=== PATIENT | female | born 1980 | race Hispanic/Latino ===

== ENCOUNTER 2017-04-04 10:50 | Emergency (ER) | payer BC ==
[2017-04-04 11:57] LABS: Basophils % (Auto) 0.6 % (0.0-1.8); Eosinophils % (Auto) 4.2 % (0.0-4.3); Hematocrit 44.4 % (30.3-42.9); Hemoglobin 15.4 gm/dl (10.1-14.3); Mean Corpuscular HGB Conc 35 % (30-34); Mean Corpuscular Hemoglobin 32 pg (28-32); Mean Corpuscular Volume 91 fl (79-97); Platelet Count 247 K/mm3 (140-440); Red Blood Count 4.87 M/mm3 (3.65-5.03); Red Cell Distribution Width 12.9 % (13.2-15.2); White Blood Count 11.7 K/mm3 (4.5-11.0)
--- NOTE | 2017-04-04 12:15 | Emergency Department Report ---
Entered by RANCHO GRIFFITH, acting as scribe for LIS HARDWICK NP. Stated Complaint: BLOOD IN URINE Time Seen by Provider: 04/04/17 11:29 - HPI History of Present Illness: Pt is a 41 y.o. female who presents to ED for evaluation of three day hx of bilateral flank pain with associated dysuria and nausea. She describes her 8/10 pain as cramping. Patient states that her current sx do not feel similar to those experienced in the past with UTIs, as her current sx are more severe. She denies fever. LMP March 18, 2017. - ROS Review of Systems: Positive for bilateral flank pain, nausea, and dysuria Negative for fever - Exam Vital Signs: Vital Signs 04/04/17 11:29 Temperature 98.1 F Pulse Rate 79 Respiratory 18 Rate Blood Pressure 125/78 O2 Sat by Pulse 98 Oximetry Physical Exam: abd is soft, no cva tenderness leena MSE screening note: Focused history and physical exam performed. Due to findings the following was ordered: Orders placed: labs. ED Medical Decision Making - Lab Data Result diagrams: 04/04/17 11:35 ED Disposition for MSE Condition: Stable This documentation as recorded by the scribe,RANCHO GRIFFITH,accurately reflects the service I personally performed and the decisions made by RONEN hayes TRACY M , MANAGER SPECIALTY.
[2017-04-04 12:17] LABS: Alanine Aminotransferase 34 units/L (7-56); Albumin 4.6 g/dL (3.9-5); Albumin/Globulin Ratio 1.2 %; Alkaline Phosphatase 69 units/L (35-129); Anion Gap 20 mmol/L; BUN/Creatinine Ratio 13.33; Blood Urea Nitrogen 8 mg/dL (7-17); Calcium 9.5 mg/dL (8.4-10.2); Carbon Dioxide 25 mmol/L (22-30); Chloride 98.1 mmol/L (98-107); Glucose 155 mg/dL (65-100); Potassium 4.8 mmol/L (3.6-5.0); Sodium 138 mmol/L (137-145); Total Protein 8.5 g/dL (6.3-8.2)
[2017-04-04 12:22] LABS: Bacteria,Urine 1+ /HPF (Negative); Bilirubin,Urine NEG (Negative); Blood,Urine MOD (Negative); Ketones,Urine NEG (Negative); Leukocyte Esterase,Urine MOD (Negative); Mucus,Urine FEW /HPF; Nitrite,Urine POS (Negative); Urobilinogen,Urine < 2.0 mg/dL (<2.0)
[2017-04-04] MEDS ORDERED: MORPHINE IV ONE ×2 (15:30→18:08)
[2017-04-04] MEDS ORDERED: ZOFRAN IV ONE (15:31)
[2017-04-04] MEDS ORDERED: NACL 0.9% 1000 ML 1,000 ML IV ONE ×2 (15:31→18:08)
[2017-04-04] MEDS ORDERED: ROCEPHIN/NS 1 GM/50 ML 1 GM/50 ML BAG IV ONE (15:32)
--- NOTE | 2017-04-04 15:32 | Emergency Department Report ---
ED Female HPI - General Chief complaint: Abdominal Pain Stated complaint: BLOOD IN URINE Time Seen by Provider: 04/04/17 11:29 Source: patient Mode of arrival: Ambulatory Limitations: No Limitations - History of Present Illness Initial comments: 36-year-old female past medical history recurrent UTIs, diabetes, hyperlipidemia , neuropathy presents with complaint of 4 days of dysuria, hematuria, right- sided flank pain. Patient denies fevers denies any nausea or vomiting does state that flank pain is getting progressively worse. Patient is awake alert and oriented 3 nontoxic-appearing. Accompanied by family members. Denies any chest pain shortness of breath palpitations. Denies inability to tolerate by mouth. Denies any diaphoresis. MD Complaint: dysuria Onset/Timin -: days(s) Location: suprapubic Radiation: R flank Severity: moderate Severity scale (0 -10): 6 Quality: sharp Consistency: intermittent Worsens with: urination Are you Now?: No Last Menstrual Period: 03/18/17 EDC: 12/23/17 Associated Symptoms: dysuria, hematuria - Related Data Sexually active: Yes Previous Rx's Medication Instructions Recorded Last Taken Type Naproxen [Naprosyn] 500 mg PO BID #30 tablet 07/26/16 Unknown Rx Acetaminophen/Codeine [Tylenol 1 tab PO Q6H PRN #10 tab 04/04/17 Unknown Rx /Codeine # 3 tab] Ibuprofen [Motrin] 600 mg PO Q8H PRN #25 tablet 04/04/17 Unknown Rx Levofloxacin [Levaquin] 750 mg PO QDAY #5 tablet 04/04/17 Unknown Rx Allergies Allergy/AdvReac Type Severity Reaction Status Date / Time No Known Allergies Allergy Unverified 08/05/15 11:28 ED Review of Systems ROS: Stated complaint: BLOOD IN URINE Other details as noted in HPI Constitutional: denies: chills, fever Eyes: denies: eye pain, eye discharge, vision change ENT: denies: ear pain, throat pain Respiratory: denies: cough, shortness of breath, wheezing Cardiovascular: denies: chest pain, palpitations Endocrine: no symptoms reported Gastrointestinal: denies: abdominal pain, nausea, diarrhea Genitourinary: urgency, hematuria. denies: dysuria Musculoskeletal: denies: back pain, joint swelling, arthralgia Skin: denies: rash, lesions Neurological: denies: headache, weakness, paresthesias Psychiatric: denies: anxiety, depression Hematological/Lymphatic: denies: easy bleeding, easy bruising ED Past Medical Hx - Past Medical History Previous Medical History?: Yes Hx Diabetes: Yes Additional medical history: NEUROPATHY, HIGH CHOLESTEROL - Surgical History Past Surgical History?: Yes Additional Surgical History: D&C, NECK SURGERY - Social History Smoking Status: Never Smoker Substance Use Type: Prescribed - Medications Home Medications: Home Medications Medication Instructions Recorded Confirmed Last Taken Type Naproxen [Naprosyn] 500 mg PO BID #30 tablet 07/26/16 Unknown Rx Acetaminophen/Codeine [Tylenol 1 tab PO Q6H PRN #10 tab 04/04/17 Unknown Rx /Codeine # 3 tab] Ibuprofen [Motrin] 600 mg PO Q8H PRN #25 tablet 04/04/17 Unknown Rx Levofloxacin [Levaquin] 750 mg PO QDAY #5 tablet 04/04/17 Unknown Rx ED Physical Exam - General Limitations: No Limitations General appearance: alert, in no apparent distress - Head Head exam: Present: atraumatic, normocephalic - Eye Eye exam: Present: normal appearance, PERRL, EOMI - ENT ENT exam: Present: mucous membranes moist - Neck Neck exam: Present: normal inspection, full ROM - Respiratory Respiratory exam: Present: normal lung sounds bilaterally. Absent: respiratory distress - Cardiovascular Cardiovascular Exam: Present: regular rate, normal rhythm. Absent: systolic murmur, diastolic murmur, rubs, gallop - GI/Abdominal GI/Abdominal exam: Present: soft, normal bowel sounds - Extremities Exam Extremities exam: Present: normal inspection, full ROM - Back Exam Back exam: Present: normal inspection, full ROM, CVA tenderness (R) - Neurological Exam Neurological exam: Present: alert, oriented X3, CN II-XII intact, normal gait - Psychiatric Psychiatric exam: Present: normal affect, normal mood - Skin Skin exam: Present: warm, dry, intact, normal color. Absent: rash ED Course Vital Signs 04/04/17 04/04/17 04/04/17 11:29 15:05 17:07 Temperature 98.1 F 98.3 F Pulse Rate 79 65 Respiratory 18 16 Rate Blood Pressure 125/78 Blood Pressure 119/74 [Left] O2 Sat by Pulse 98 100 95 Oximetry 04/04/17 04/04/17 04/04/17 17:10 17:20 17:30 Temperature Pulse Rate Respiratory Rate Blood Pressure 123/66 112/62 107/71 Blood Pressure [Left] O2 Sat by Pulse 97 95 99 Oximetry 04/04/17 04/04/17 04/04/17 17:40 17:50 18:00 Temperature Pulse Rate Respiratory Rate Blood Pressure 107/71 107/71 107/71 Blood Pressure [Left] O2 Sat by Pulse 99 98 97 Oximetry ED Medical Decision Making - Lab Data Result diagrams: 04/04/17 11:35 04/04/17 11:35 - Medical Decision Making A/P: Ureteritis, UTI 1- CT consistent with bilateral ureteritis 2- ceftriaxone 1 g given in the ED, patient's vital signs stable 3- normal BUN and creatinine 4- Case d/w Dr. Garner who also examined the patient 5- patient given strict instructions to return to the ED for intractable vomiting worsened abdominal pain, fevers and chills Critical care attestation.: If time is entered above; I have spent that time in minutes in the direct care of this critically ill patient, excluding procedure time. ED Disposition Clinical Impression: Ureteritis UTI (urinary tract infection) Qualifiers: Urinary tract infection type: acute pyelonephritis Qualified Code(s): N10 - Acute pyelonephritis Disposition: TO HOME OR SELFCARE Is pt being admited?: No Does the pt Need Aspirin: No Condition: Stable Instructions: Abdominal Pain (ED), Urinary Tract Infection in Women (ED) Prescriptions: Acetaminophen/Codeine [Tylenol /Codeine # 3 tab] 1 tab PO Q6H PRN #10 tab PRN Reason: Pain Ibuprofen [Motrin] 600 mg PO Q8H PRN #25 tablet PRN Reason: Pain Levofloxacin [Levaquin] 750 mg PO QDAY #5 tablet Referrals: MICHAEL VIEIRA MD [Primary Care Provider] - 3-5 Days ILEANA CALLAWAY MD [Staff Physician] - 3-5 Days Forms: Accompanied Note, Work/School Release Form(ED) Time of Disposition: 19:05
--- NOTE | 2017-04-04 17:37 | Cat Scan Report ---
FINAL REPORT EXAM: CT ABDOMEN PELVIS W CON HISTORY: ? right sided pyelo TECHNIQUE: Standard enhanced CT of the abdomen and pelvis. Delayed imaging through the kidneys and bladder was also obtained. Coronal and sagittal reconstruction was also performed. Contrast: 100 mL intravenous contrast given PRIORS: None. FINDINGS: Neither kidney shows evidence for hydronephrosis. However, there is concentric enhancement of the ureteral wall bilaterally. Mild surrounding inflammation in the adjacent fat of each ureter is seen. Findings suggest an acute inflammatory process such as ureteritis bilaterally. The kidneys demonstrate homogeneous perfusion and no surrounding inflammation. Therefore, infection involving the kidneys/pyelonephritis is felt to be unlikely. No bladder wall thickening is noted. Within the abdomen, the liver demonstrates diffuse low-density throughout consistent with marked fatty metamorphosis. The spleen, pancreas, gallbladder, and adrenal glands are unremarkable. No evidence for retroperitoneal or pelvic lymphadenopathy is seen. The bowel loops have normal caliber. No soft tissue mass, fluid collection, or free air is seen within the abdomen or pelvis. The appendix is normal. Within the pelvis, the bladder is unremarkable. Both ureteral jets are noted on delayed imaging. The uterus show central low-density measuring up to 20 mm and thickness. This may represent fluid in the endometrial canal or endometrial thickening. Correlation with patient's LMP and menstrual cycle phase is recommended. Otherwise, ultrasound may be indicated. Both ovaries are enlarged in size with the left measuring 4.1 x 3.0 cm and the right measuring 4.5 x 3.0 cm. No discrete cyst or mass is seen bilaterally. No evidence for mass or lymphadenopathy is seen in the pelvis. Images through the upper abdomen include the lung bases which are expanded and clear. Bony structures show no focal abnormalities and are intact. IMPRESSION: 1. Diffuse concentric wall thickening of each ureter with surrounding inflammation. Findings are consistent with bilateral ureteritis. No evidence for hydronephrosis or inflammatory involvement of the kidneys is seen bilaterally. 2. Marked fatty metamorphosis of the liver 3. Central low-density in the uterus is abnormal in thickness. This may represent fluid in the endometrial canal or endometrial thickening. Correlation with the patient's LMP in menstrual cycle phase is recommended. Otherwise, ultrasound may be indicated. 4. Both ovaries are enlarged in size.
[2017-04-04] MEDS ORDERED: TORADOL IV ONE (18:09)
[2017-04-04 19:47] VITALS: BP 100/62
== END 2017-04-04 19:40 | disposition home or self-care (01) ==
LOC: ED 10:50
DX: N28.89 Other specified disorders of kidney and ureter (principal); N10 Acute pyelonephritis; E11.9 Type 2 diabetes mellitus without complications; E78.00 Pure hypercholesterolemia, unspecified
CPT/HCPCS: 36415; 74177; 80053; 81001; 84703; 85025; 96361; 96365; 96375; 99284; J0696; J1885; J2270; J2405; J7030